=== PATIENT | female | born 1950 | race Hispanic/Latino ===

== ENCOUNTER 2018-01-14 11:35 | Emergency (ER) | payer OTHER, MEDICARE ==
[~2018-01-14] VITALS: Ht 154.9 cm; Wt 77.1 kg
[~2018-01-14 11:35] MED LIST: AMITRIPTYLINE H25 M2 PO; AMITRIPTYLINE H50 MG PO; AUGMENTIN 875 M1 TAB PO; AZITHROMYCIN250 M1 PO; BUPROPION HCL100 M3 PO; BUPROPION HCL150 M4 PO; CALCIUM500 MG PO; COLACE100 MG PO; FLEXERIL 5MG TAB5 MG PO; FOLIC ACID 1 MG PO; FOLIC ACID1 M1 PO; GOOD NEIGHBOR100 M5 PO; GUAIFENESIN-COD10 ML PO; MIRALAX17 GM PO; MIRTAZAPINE45 M1 PO; NAPROXEN375 MG PO; NASONEX0.05 MG/Ac NAS; NORCO 5-325 TA1 EACH PO; NOVAPLUS V0.09 MG/Ac INH; PERCOCET 325 MG1 TA2 PO; PERCOCET 5-3251 EACH PO; PREDNISONE 10MG10 M1 PO; PREDNISONE10 M2 PO; PROAIR HFA8.5 GM INH; QUETIAPINE FUMA25 M1 PO; QUETIAPINE FUMA25 MG PO; RELPAX20 M1 PO; ROBITUSSIN W/CO10 ML PO; SEROQUEL100 M1 PO; SEROQUEL50 MG PO; SYMBICORT 16010.2 GM INH; TESSALON PERLE100 MG PO; TRAMADOL HCL50 M1 PO; VENLAFAXINE HC150 MG PO; VICODIN5-300 PO; VOLTAREN GEL1% TOP; ZITHROMAX250 MG PO; ZOLPIDEM TARTRAT5 M1 PO
--- NOTE | 2018-01-14 12:33 | RADIOLOGY REPORT ---
EXAMINATION: XR CHEST CLINICAL INFORMATION: Cough and fever. COMPARISON: Several priors. Most recent of 04/17/17. TECHNIQUE: 2 views of the chest were obtained. FINDINGS: No significant abnormality is noted involving the heart, lungs, mediastinum, bony thorax or soft tissues. No focal consolidation or other abnormality is demonstrated. Calcific atherosclerotic disease is present in the aortic arch. There is posttraumatic deformity of the distal right clavicle unchanged. IMPRESSION: Unremarkable examination. No acute abnormality.
[2018-01-14 13:41] LABS: ABSOLUTE BASOPHIL COUNT 0 /CUMM (0.0-0.2); ABSOLUTE EOSINOPHIL COUNT 0 /CUMM (0.0-0.7); ABSOLUTE GRANULOCYTE CT 13.6 /CUMM (1.4-6.5); ABSOLUTE LYMPH COUNT 0.8 /CUMM (1.2-3.4); ABSOLUTE MONOCYTE COUNT 0.9 /CUMM (0.10-0.60); BASOPHIL % 0 % (0.0-2.0); EOSINOPHIL % 0.2 % (0-5); GRANULOCYTE % 88.6 % (42.2-75.2); MEAN CORPUSCULAR HGB CONC 33.2 G/DL (33.0-37.0); MEAN CORPUSCULAR VOLUME 90.4 FL (81.0-99.0); MEAN PLATELET VOLUME 8.3 FL (7.4-10.4); PLATELET COUNT 249 /CUMM (130-400); RBC DISTRIBUTION WIDTH 14.1 % (11.5-14.5); RED BLOOD CELL CT 4.53 /CUMM (4.20-5.40); WHITE BLOOD CELL COUNT 15.4 /CUMM (4.8-10.8)
--- NOTE | 2018-01-14 13:42 | ED GENERAL ADULT ---
History of Present Illness General Chief Complaint: Upper Respiratory Sx/Fever Stated Complaint: ?UPP RESP INFECTION Source: patient Exam Limitations: no limitations Vital Signs & Intake/Output Vital Signs & Intake/Output Vital Signs Date Time Temp Pulse Resp B/P B/P Pulse O2 O2 Flow FiO2 Mean Ox Delivery Rate 01/14 1426 98.6 74 18 113/69 99 Room Air 01/14 1424 98.9 01/14 1310 95 01/14 1246 95 Room Air 01/14 1141 98.7 90 20 127/81 97 Room Air ED Intake and Output 01/15 0000 01/14 1200 Intake Total 0 Output Total Balance 0 Intake, Oral 0 Patient 170 lb Weight Weight Estimated Measurement Method Allergies Coded Allergies: No Known Allergies (04/17/17) Reconcile Medications Albuterol Sulfate (Proair Hfa) 90 MCG HFA.AER.AD 2 PUF INH Q4-6 PRN PRN SHORTNESS OF BREATH (Reported) Amitriptyline HCl 25 MG TABLET 1 TAB PO QPM UNKNOWN (Reported) Azithromycin (Zithromax) 250 MG TABLET 1 DP PO AD COPD 2 the first day followed by 1 for days 2-5 Budesonide/Formoterol Fumarate (Symbicort 160-4.5 Mcg Inhaler) 160 MCG-4.5 MCG/ ACTUATION HFA.AER.AD 2 PUF INH BID BREATHING PROBLEMS (Reported) Bupropion HCl (Bupropion HCl Sr) 100 MG TABLET.ER 1 TAB PO BID MENTAL HEALTH (Reported) Codeine Phosphate/Guaifenesi (Cheratussin AC Syrup) 10 MG-100 MG/5 ML LIQUID 10 ML PO Q6H PRN COUGH Eletriptan HBr (Relpax) 20 MG TABLET 1 TAB PO DAILY PRN HEADACHE (Reported) Folic Acid 1 MG TABLET 1 TAB PO DAILY VITAMIN SUPPORT (Reported) Mirtazapine 45 MG TABLET 1 TAB PO QPM SLEEP (Reported) Prednisone 50 MG TABLET 1 TAB PO DAILY COPD Prednisone 10 MG TABLET 0 PO DAILY Breathing Quetiapine Fumarate (Seroquel) 100 MG TABLET 1 TAB PO QPM SLEEP (Reported) Quetiapine Fumarate 25 MG TABLET 1 TAB PO DAILY PSYCH (Reported) Venlafaxine HCl (Venlafaxine HCl ER) 150 MG CAP.ER.24H 1 CAP PO BID MENTAL HEALTH (Reported) Triage Note: PT TO ED C/O COUGH WITH CHEST CONGESTION SINCE YESTERDAY. PRODUCTIVE COUGH WITH YELLOW SPUTUM. AFEBRILE. ALSO C/O HEADACHE. Triage Nurses Notes Reviewed? yes Onset: Abrupt Duration: day(s): (2), constant, continues in ED, getting worse Timing: recent history Injury Environment: home Severity: moderate, severe No Modifying Factors: none Associated Symptoms: cough LMP (ages 10-50): post menopausal, unknown : No Patient currently breastfeeds: No HPI: 67-year-old female history of asthma and COPD presents for evaluation of cough, congestion and wheezing. Patient reports symptoms started 2 days ago and been persistent. She reports a cough productive of yellow sputum. She's been using her albuterol inhaler without much improvement. She recently quit smoking. She denies chest pain hemoptysis lower extremity edema dizziness lightheadedness syncope. No recent surgery or recent trauma no history of PE. (Luis Martino) Past History Travel History Traveled to [place] past 21 day No Medical History Any Pertinent Medical History? see below for history Neurological: migraine EENT: NONE Cardiovascular: NONE Respiratory: asthma, COPD Gastrointestinal: peptic ulcer disease Hepatic: NONE Renal: NONE Musculoskeletal: osteoarthritis Psychiatric: depression Endocrine: NONE Blood Disorders: NONE Cancer(s): NONE SIGN ERECTOR/Reproductive: NONE History of MRSA: No History of VRE: No History of CDIFF: No Surgical History Surgical History: GASTRECTOMY Psychosocial History Services at Home Nursing What is your primary language [place]se Tobacco Use: Quit >30 days ago ETOH Use: denies use Illicit Drug Use: denies illicit drug use Family History Family History, If Any: MOTHER FH: diabetes mellitus SISTER FH: diabetes mellitus BROTHER FH: diabetes mellitus Hx Contributory? No (Luis Martnio) Review of Systems Review of Systems Constitutional: Reports: no symptoms. EENTM: Reports: no symptoms. Respiratory: Reports: see HPI, cough, short of breath, sputum production, wheezing. Cardiovascular: Reports: no symptoms. GI: Reports: no symptoms. Genitourinary: Reports: no symptoms. Musculoskeletal: Reports: no symptoms. Skin: Reports: no symptoms. Neurological/Psychological: Reports: no symptoms. Hematologic/Endocrine: Reports: no symptoms. Immunologic/Allergic: Reports: no symptoms. All Other Systems: Reviewed and Negative (Luis Martino) Physical Exam Physical Exam General Appearance: well developed/nourished, no apparent distress, alert, awake Head: atraumatic, normal appearance Eyes: Bilateral: normal appearance, EOMI. Ears, Nose, Throat: normal pharynx, normal ENT inspection, hearing grossly normal Neck: normal inspection, supple, full range of motion Respiratory: chest non-tender, no respiratory distress, rhonchi, wheezing Cardiovascular: regular rate/rhythm, normal peripheral pulses Peripheral Pulses: 2+ radial (R), 2+ radial (L) Gastrointestinal: soft, non-tender Back: normal inspection, normal range of motion, no vertebral tenderness Extremities: normal inspection, normal range of motion, no edema Neurologic/Psych: no motor/sensory deficits, awake, alert, oriented x 3, normal gait, normal mood/affect Skin: intact, normal color, warm/dry Lymphatic: no anterior cervical pablo Core Measures ACS in differential dx? No CVA/TIA Diagnosis: No Sepsis Present: No Sepsis Focused Exam Completed? No (Law KANG,Luis) Progress Differential Diagnoses I considered the following diagnoses in my evaluation of the patient: [COPD exacerbation, asthma exacerbation, pneumonia, bronchitis, PE] Plan of Care: Orders Procedure Date/time Status TROPONIN LEVEL 01/14 1305 Complete COMPREHENSIVE METABOLIC PANEL 01/14 1305 Complete CBC WITHOUT DIFFERENTIAL 01/14 1305 Complete EKG 01/14 1305 Active Laboratory Tests 01/14/18 1320: Anion Gap 12, Estimated GFR > 60, BUN/Creatinine Ratio 11.7, Glucose 111 H, Calcium 9.9, Total Bilirubin 0.8, AST 36, ALT 20, Alkaline Phosphatase 86, Troponin I < 0.01, Total Protein 7.1, Albumin 4.2, Globulin 2.9, Albumin/ Globulin Ratio 1.4, CBC w Diff MAN DIFF ORDERED, RBC 4.53, MCV 90.4, MCH 30.0, MCHC 33.2, RDW 14.1, MPV 8.3, Gran % 88.6 H, Lymphocytes % 5.2 L, Monocytes % 6.0, Eosinophils % 0.2, Basophils % 0, Absolute Granulocytes 13.6 H, Absolute Lymphocytes 0.8 L, Absolute Monocytes 0.9 H, Absolute Eosinophils 0, Absolute Basophils 0, Platelet Estimate VERIFIED BY SMEAR, Normocytic RBCs VERIFIED, Normochromic RBCs VERIFIED Patient is here for evaluation of cough congestion wheezing and shortness of breath. On exam she has diffuse wheezing and rhonchi. No hypoxia or cyanosis. Patient was medicated with prednisone and a DuoNeb. Chest x-ray labs EKG ordered. Patient is feeling better after DuoNeb. Chest x-ray is clear. Still no hypoxia or cyanosis. Lab work shows a white count of 15,000. Negative troponin EKG sinus rhythm without ST or T-wave changes. Patient will be treated for COPD exacerbation with Zithromax prednisone albuterol and Cheratussin. Advised her to rest and plenty of fluids follow-up with pulmonology. Discussed return precautions in detail case discussed with Dr. Farfan he agrees Diagnostic Imaging: Viewed by Me: Radiology Read. Discussed w/RAD: Radiology Read. CXR Impression: PATIENT: ALLYSON CAMPUZANO PRESENT AGE: 67 PATIENT ACCOUNT NO: [id number] : 50 LOCATION: [facility] ORDERING PHYSICIAN: Luis KANG SERVICE DATE: 01/14/18 EXAM TYPE: RAD - XRY-CHEST XRAY, TWO VIEWS EXAMINATION: XR CHEST CLINICAL INFORMATION: Cough and fever. COMPARISON: Several priors. Most recent of 04/17/17. TECHNIQUE: 2 views of the chest were obtained. FINDINGS: No significant abnormality is noted involving the heart, lungs, mediastinum, bony thorax or soft tissues. No focal consolidation or other abnormality is demonstrated. Calcific atherosclerotic disease is present in the aortic arch. There is posttraumatic deformity of the distal right clavicle unchanged. IMPRESSION: Unremarkable examination. No acute abnormality. DICTATED BY: Mary Lou Bonner MD DATE/TIME DICTATED:01/14/181225 TELECOMMUNICATION SYSTEMS DESIGNER:SANCHEZ DATE/TIME TRANSCRIBED:01/14/181225 CONFIDENTIAL, DO NOT COPY WITHOUT APPROPRIATE AUTHORIZATION. <Electronically signed in Other Vendor System> SIGNED BY: Mary Lou Bonner MD 01/14/18 1238 Initial ED EKG: normal sinus rhythm, no ST T wave changes Prior EKG: unchanged (Luis Martino) Departure Departure Disposition: HOME OR SELF CARE Condition: Stable Clinical Impression Primary Impression: COPD exacerbation Referrals: Carlitos Rivera MD (PCP/Family) Additional Instructions: Take antibiotics and steroids as directed for the full course. Continue to use inhalers as directed. Tylenol for pain. Cheratussin as needed for cough this may cause drowsiness. Make a follow-up with your primary care doctor to review all results of today's visit. Monitor your symptoms return with any concerns. Please go over all results of today's visit with your primary care doctor. Contact your primary care doctor to let them know you were here in the emergency room. There may be nonspecific findings which may not be related to your visit today here in the emergency room but may require further evaluation and chronic monitoring by your primary care doctor. If you had a laceration today the chance of foreign body always remains. You should follow-up with your primary care doctor for recheck in 3-5 days for a wound check. If you had an x-ray done there is a chance that a fracture could have been missed on initial read and you should follow-up with your primary care doctor for repeat x-rays if symptoms persist. If your blood pressure was elevated here in the emergency room please have rechecked by her primary care doctor within the next 48 hours by your primary care doctor. If you were prescribed a narcotic here in the emergency room or any type of controlled substances you're not allowed to drive while taking this medication or operate any type of heavy machinery. Narcotics can make you feel lightheaded dizziness nausea and can cause constipation. You may need to chicken picker a stool softener. Thank you for choosing [facility] emergency room. Please return to the emergency room immediately if you have any other concerns worsening of symptoms. Departure Forms: Customer Survey General Discharge Information Prescriptions: Current Visit Scripts Prednisone 1 TAB PO DAILY #5 TAB Codeine Phosphate/Guaifenesi (Cheratussin AC Syrup) 10 ML PO Q6H PRN COUGH #240 ML Azithromycin (Zithromax) 1 DP PO AD #6 TAB 2 the first day followed by 1 for days 2-5 (Luis Martino) PA/CARAMEL CANDY MAKER HELPER Co-Sign Statement Statement: ED Attending supervision documentation- [X] I saw and evaluated the patient. I have also reviewed all the pertinent lab results and diagnostic results. I agree with the findings and the plan of care as documented in the PA's/CARAMEL CANDY MAKER HELPER's documentation. [] I have reviewed the ED Record and agree with the PA's/CARAMEL CANDY MAKER HELPER's documentation. [] Additions or exceptions (if any) to the PAs/CARAMEL CANDY MAKER HELPER's note and plan are summarized below: [] (Naheed DELEON,Alfonzo Luke) Critical Care Note Critical Care Note Critical Care Time: non-applicable (Luis Martino)
[2018-01-14 14:26] VITALS: BP 113/69
[2018-01-14] MEDS ORDERED: CHERATUSSIN AC118 M1 PO (14:35)
[2018-01-14] MEDS ORDERED: ZITHROMAX250 M2 PO (14:35)
[2018-01-14] MEDS ORDERED: PREDNISONE50 M1 PO (14:35)
== END 2018-01-14 14:47 ==
LOC: ERH 11:35
PROVIDERS: Physician Assistant Medical
DX: J44.1 Chronic obstructive pulmonary disease with (acute) exacerbation (principal); Z87.891 Personal history of nicotine dependence; K27.9 Peptic ulcer, site unspecified, unspecified as acute or chronic, without hemorrhage or perforation; F32.9 Major depressive disorder, single episode, unspecified; J45.909 Unspecified asthma, uncomplicated
CPT/HCPCS: 1263; 71046; 93005; 93010